=== PATIENT | female | born 1980 | race Caucasian/White ===

== ENCOUNTER 2021-05-06 17:43 | Inpatient (IN) ==
[2021-05-06] MEDS ORDERED: Dinoprostone 10 MG VAG.SUPP VAGINAL ONE (18:38)
[2021-05-06] MEDS ORDERED: Lactated Ringers 1000 ml BAG 1,000 ML IV ONE ×2 (18:38→23:07)
[2021-05-06] MEDS ORDERED: Buffered Lidocaine 1% SYRIN 1 ml INTRADERM ONE (18:38)
[2021-05-06 20:04] LABS: Urine Benzodiazepine Screen None Detected (None Detect); Urine Cannabinoids Screen None Detected (None Detect); Urine Opiates Screen None Detected (None Detect)
[2021-05-06 23:45] LABS: ABS Basophils 0.1 10^3/ul (0-0.2); ABS Eosinophils 0.1 10^3/ul (0-0.6); ABS Lymphocytes 1.6 10^3/ul (1.0-4.8); ABS Monocytes 0.8 10^3/ul (0-0.8); ABS Neutrophils 6.5 10^3/ul (1.5-7.7); Eosinophil % 0.7 %; Hematocrit 34 % (35-47); Hemoglobin 11.7 g/dL (12.0-16.0); Lymphocyte % 17.9 %; Mean Corpuscular HGB Conc 34 g/dL (31-36); Mean Corpuscular Hemoglobin 32 pg (27-31); Mean Corpuscular Volume 93 fL (80-97); Mean Platelet Volume 8.1 fL (7.4-10.4); Platelet Count 262 10^3/uL (150-450); Red Blood Count 3.67 10^6 /uL (3.70-4.87); Red Cell Distribution Width 14 % (10-15); White Blood Count 9.1 10^3/uL (3.5-10.8)
[2021-05-07] MEDS: Lidocaine 2% JELLY 6 ML TOPICAL SCH (09:13)
[2021-05-07] MEDS ORDERED: Penicillin G Potassium IV 5,000,000 UNITS in NS 0.9% 100 ml BAG 100 ML IVPB ONE (09:50)
[2021-05-07] MEDS ORDERED: Oxytocin in LR 20 UNITS/1,000 ML BAG IVPB SCH ×2 (10:00→22:00)
[2021-05-07] MEDS ORDERED: OBEPIDURAL 250 ML EPIDURAL ONE (14:00)
[2021-05-07] MEDS: Penicillin G Potassium IV 3,000,000 UNITS in NS 0.9% 100 ml BAG 100 ML IVPB SCH ×3 (15:30→23:20)
[2021-05-07] MEDS ORDERED: Lactated Ringers 1000 ml BAG 1,000 ML IV SCH (22:00)
[2021-05-07] MEDS: Dibucaine 1% OINT 28.35 GM TUBE PR PRN (23:18)
[2021-05-07] MEDS: Witch Hazel PAD JAR TOPICAL PRN (23:18)
[2021-05-08 06:45] LABS: ABS Basophils 0.1 10^3/ul (0-0.2); ABS Lymphocytes 1.1 10^3/ul (1.0-4.8); ABS Monocytes 1.2 10^3/ul (0-0.8); ABS Neutrophils 14.2 10^3/ul (1.5-7.7); Eosinophil % 0.2 %; Hematocrit 29 % (35-47); Hemoglobin 9.7 g/dL (12.0-16.0); Lymphocyte % 6.6 %; Mean Corpuscular HGB Conc 34 g/dL (31-36); Mean Corpuscular Hemoglobin 32 pg (27-31); Mean Corpuscular Volume 94 fL (80-97); Mean Platelet Volume 7.8 fL (7.4-10.4); Platelet Count 216 10^3/uL (150-450); Red Blood Count 3.05 10^6 /uL (3.70-4.87); Red Cell Distribution Width 14 % (10-15); White Blood Count 16.6 10^3/uL (3.5-10.8)
[2021-05-08] MEDS: Lidocaine 2% JELLY 6 ML TOPICAL SCH (07:41)
[2021-05-08] MEDS: Dibucaine 1% OINT 28.35 GM TUBE PR PRN (20:19)
[2021-05-10 08:07] VITALS: BP 110/71
[2021-05-10] MEDS: Dibucaine 1% OINT 28.35 GM TUBE PR PRN (10:06)
[2021-05-10] MEDS: Witch Hazel PAD JAR TOPICAL PRN (10:06)
== END 2021-05-10 14:25 | disposition home or self-care (01) | DRG 560 ==
LOC: MCHOBOUT 17:43 → MCHOB 18:41
PROVIDERS: ADMIT Advanced Practice Midwife; ATTEND Midwife

== ENCOUNTER 2024-04-12 06:40 | Inpatient (IN) ==
[2024-04-12] MEDS: Ondansetron 4 mg VIAL 2 MG/ML 2 ml VIAL IV ONE (07:38)
[2024-04-12] MEDS: Morphine 4 MG/ML VIAL (1 ml) IV ONE (07:38)
[2024-04-12 07:44] LABS: ABS Eosinophils 0.4 10^3/uL (0.0-0.5); ABS Lymphocytes 0.8 10^3/uL (1.0-4.8); ABS Monocytes 1.3 10^3/uL (0.0-0.9); ABS Neutrophils 10.1 10^3/uL (1.5-7.6); Hematocrit 37.9 % (35-45); Hemoglobin 12.5 g/dL (11.5-14.3); Lymphocyte % 6.5 %; Mean Corpuscular Hemoglobin 29.3 pg (27-33); Mean Corpuscular Volume 88.7 fL (80-97); Mean Platelet Volume 8.1 fL (7.5-11.2); Platelet Count 490 10^3/uL (150-450); Red Blood Count 4.27 10^6/uL (3.63-4.92); Red Cell Distribution Width 13.2 % (12-17); White Blood Count 12.7 10^3/uL (3.8-11.8)
[2024-04-12 08:08] LABS: Urine Appearance Extra Turbid; Urine Bilirubin Negative (Negative); Urine Blood 1+ (Negative); Urine Glucose Negative (Negative); Urine Ketones Negative (Negative); Urine Nitrite Negative (Negative); Urine Protein Trace (Negative); Urine Specific Gravity 1.018 (1.002-1.030); Urine Urobilinogen Negative (Negative)
[2024-04-12 08:12] LABS: Urine Bacteria Absent /HPF (Absent); Urine Red Blood Cell Trace(0-2/hpf) /HPF (0-Trace); Urine White Blood Cell Absent /HPF (0-Trace)
[2024-04-12 08:38] LABS: ALT 45 U/L (7-52); AST 88 U/L (13-39); Albumin 3.9 g/dL (3.2-5.2); Albumin/Globulin Ratio 1.5 (1-3); Alkaline Phosphatase 104 U/L (35-149); Anion Gap 10 mmol/L (2-16); Blood Urea Nitrogen 11 mg/dL (6-24); C Reactive Protein 28.16 mg/L (<8.01); CO2 Carbon Dioxide 24 mmol/L (22-32); Calcium 9.1 mg/dL (8.6-10.3); Chloride 102 mmol/L (101-111); Creatinine, Serum 0.75 mg/dL (0.51-0.95); Globulin 2.6 g/dL (2-4); Glucose 105 mg/dL (70-100); Lipase 41 U/L (11.0-82.0); Magnesium 2.1 mg/dL (1.9-2.7); Potassium 4.7 mmol/L (3.5-5.0); Sodium 136 mmol/L (135-145); Total Bilirubin 0.4 mg/dL (0.2-1.0); Total Protein 6.5 g/dL (6.4-8.9); eGFR CKD-EPI 101.2 (>60)
[2024-04-12] MEDS: HYDROmorphone 1 MG/1 ML SYRINGE IV ONE (08:39)
[2024-04-12 08:41] LABS: HCG Pregnancy < 0.60 mIU/mL
[2024-04-12 09:06] LABS: Urine Color Light-Yellow
[2024-04-12 09:32] LABS: LDH 1336 U/L (140-271)
[2024-04-12] MEDS: Iohexol 300 (CONTRAST) 10 ML SDV IV ONE (11:00)
[2024-04-12] MEDS ORDERED: Senna TAB 8.6 mg TAB PO PRN (14:14)
[2024-04-12] MEDS ORDERED: Naloxone 0.4 mg VIAL 0.4 mg/ml 1 ml VIAL IV PUSH PRN (15:21)
[2024-04-12] MEDS: Enoxaparin 40 MG/0.4 ML SYR SUBCUT SCH (15:31)
[2024-04-12] MEDS: Orphenadrine Citrate INJ 30 mg/ml 2 ml VIAL (60 mg) IV ONE (15:44)
[2024-04-12] MEDS: fentaNYL PATCH 25 MCG/HR 1 PATCH TRANSDERM SCH (16:22)
[2024-04-12 17:27] LABS: INR 1.21 (0.85-1.14)
[2024-04-12] MEDS: Senna TAB 8.6 mg TAB PO SCH (17:32)
[2024-04-12] MEDS: NS 0.9% 1000 ml BAG 1,000 ML IV SCH (17:34)
[2024-04-12 18:00] LABS: Phosphorus 3.3 mg/dL (2.5-5.0)
[2024-04-12] MEDS: fentaNYL Patch Check Q Shift NOTE FOLLOW UP SCH (19:21)
[2024-04-12] MEDS: Polyethylene Glycol 3350 17 GM PACKET PO SCH (20:10)
[2024-04-12] MEDS: Ondansetron 4 mg VIAL 2 MG/ML 2 ml VIAL IV PRN (21:31)
[2024-04-12] MEDS: fentaNYL 100 mcg/2 ml 50 MCG/ML VIAL IV SLOW PU ONE (22:08)
[2024-04-13 05:48] LABS: ABS Basophils 0.1 10^3/uL (0.0-0.1); ABS Eosinophils 0.4 10^3/uL (0.0-0.5); ABS Lymphocytes 0.5 10^3/uL (1.0-4.8); ABS Monocytes 1.4 10^3/uL (0.0-0.9); ABS Neutrophils 11.3 10^3/uL (1.5-7.6); Eosinophil % 2.9 %; Hematocrit 34.1 % (35-45); Hemoglobin 11.3 g/dL (11.5-14.3); Lymphocyte % 3.7 %; Mean Corpuscular Hemoglobin 29.3 pg (27-33); Mean Corpuscular Hgb Conc 33.2 g/dL (31-36); Mean Corpuscular Volume 88.3 fL (80-97); Mean Platelet Volume 8.7 fL (7.5-11.2); Platelet Count 424 10^3/uL (150-450); Red Blood Count 3.86 10^6/uL (3.63-4.92); Red Cell Distribution Width 13.4 % (12-17); White Blood Count 13.7 10^3/uL (3.8-11.8)
[2024-04-13 06:07] LABS: Calcium 8.5 mg/dL (8.6-10.3); Creatinine, Serum 0.71 mg/dL (0.51-0.95); Potassium 4.5 mmol/L (3.5-5.0); eGFR CKD-EPI 108.1 (>60)
[2024-04-13 08:08] LABS: Uric Acid 9.6 mg/dL (2.3-6.6)
[2024-04-13] MEDS: methylPREDNISolone SOD SUCC 40 mg/ml 1 ml VIAL IV ONE (10:44)
[2024-04-13] MEDS ORDERED: Naloxone 0.4 mg VIAL 0.4 mg/ml 1 ml VIAL IV PUSH PRN (11:43)
[2024-04-13] MEDS: Morphine PCA ADULT 5 MG/ML 30 ML PCA SCH (13:38)
[2024-04-13] MEDS: Senna TAB 8.6 mg TAB PO ONE (21:24)
[2024-04-14 06:30] LABS: Hematocrit 32.9 % (35-45); Hemoglobin 10.8 g/dL (11.5-14.3); Mean Corpuscular Hemoglobin 29.2 pg (27-33); Mean Corpuscular Volume 88.6 fL (80-97); Mean Platelet Volume 9.1 fL (7.5-11.2); Platelet Count 421 10^3/uL (150-450); Red Blood Count 3.71 10^6/uL (3.63-4.92); Red Cell Distribution Width 13.4 % (12-17); White Blood Count 14.9 10^3/uL (3.8-11.8)
[2024-04-14 06:37] LABS: ABS Basophils 0.1 10^3/uL (0.0-0.1); ABS Eosinophils 0.3 10^3/uL (0.0-0.5); ABS Lymphocytes 0.7 10^3/uL (1.0-4.8); ABS Neutrophils 11.9 10^3/uL (1.5-7.6); ABS Nucleated RBC 0.01 10^3/ul; Eosinophil % 1.7 %; Lymphocyte % 4.9 %; Nucleated Red Blood Cells % 0.1 %/100WBC (0.0-0.8)
[2024-04-14 06:39] LABS: Calcium 8.5 mg/dL (8.6-10.3); Creatinine, Serum 0.69 mg/dL (0.51-0.95); Potassium 4.5 mmol/L (3.5-5.0); eGFR CKD-EPI 110.4 (>60)
[2024-04-14 06:55] LABS: Magnesium 2.1 mg/dL (1.9-2.7); Phosphorus 1.9 mg/dL (2.5-5.0)
[2024-04-14] MEDS: Sodium Phosphate IV 15 MMOL in NS 0.9% 250 ml 250 ML IV ONE (10:08)
[2024-04-14] MEDS ORDERED: Morphine ORAL CONCENTRATE 5 MG/0.25 ML ORAL.SYRIN SL PRN (10:29)
[2024-04-14] MEDS ORDERED: fentaNYL PATCH 100 MCG/HR 1 PATCH TRANSDERM SCH (11:00)
[2024-04-14] MEDS: fentaNYL PATCH 50 MCG/HR 1 PATCH TRANSDERM SCH (12:39)
[2024-04-14] MEDS: Morphine ORAL CONCENTRATE 5 MG/0.25 ML ORAL.SYRIN SL PRN (13:38)
[2024-04-14] MEDS: Morphine PCA ADULT 5 MG/ML 30 ML PCA SCH (18:51)
[2024-04-14] MEDS ORDERED: fentaNYL Patch Check Q Shift NOTE FOLLOW UP SCH (19:00)
[2024-04-14] MEDS ORDERED: fentaNYL Patch Check Q Shift NOTE SCH (19:00)
[2024-04-15 13:44] VITALS: BP 121/81
== END 2024-04-15 18:35 | disposition home or self-care (01) | DRG 281 ==
LOC: ED 06:40 → EDHOLD 06:40 → MED 15:29
PROVIDERS: ADMIT Hospitalist; ATTEND Nurse Practitioner Family